=== PATIENT | female | born 1965 | race Two or more races ===

== ENCOUNTER 2024-07-03 21:01 | Emergency (ER) | payer OTHER ==
[2024-07-03 21:09] VITALS: BP 158/70; PULSE 89; RESP 18; TEMP 98; BMI 35.8
[2024-07-03] MEDS ORDERED: IBUPROFEN 400 MG TABLET (FP) PO ONE (21:31)
[2024-07-03] MEDS: IBUPROFEN 400 MG TABLET (FP) PO ONE (21:46)
== END 2024-07-03 22:57 | disposition home or self-care (01) ==
LOC: JERFT 21:01
DX: S93.402A Sprain of unspecified ligament of left ankle, initial encounter (principal); W00.0XXA Fall on same level due to ice and snow, initial encounter
CPT/HCPCS: 73590-TC-LT-FY; 73610-TC-LT-FY; 73630-TC-LT; 99283-25